=== PATIENT | female | born 1940 | race Caucasian/White ===

== ENCOUNTER → 2018-10-22 15:11 | Outpatient (CLI) | payer MEDICARE, OTHER, SELFPAY ==
[2018-10-22 17:41] LABS: Absolute Lymphocyte Count 1.89 X10^3/ul (0.83-4.51); Absolute Neutrophil Count 4.9 X10^3/uL (2.0-7.7); Basophil# 0.04 X10^3/uL; Basophil% 0.5 % (0-1); Eosinophil# 0.22 X10^3/uL; Eosinophils% 2.9 % (0-5); Hematocrit 40.4 % (37-47); Hemoglobin 13.4 g/dl (12.0-15.0); Lymphocyte # 1.89 X10^3/ul (4.0); Lymphocyte % 24.9 % (19-41); Mean Corp Hgb Conc 33.2 g/gl (32-36); Mean Corpuscular Hgb 30.2 pg (27.0-32.0); Mean Platelet Vol. 10.1 fl (6.2-12.0); Monocyte# 0.52 X10^3/uL; Monocyte% 6.9 % (0-10); Neutrophil # 4.91 X10^3/uL (2.7-7.7); Neutrophil % 64.7 % (47-70); Platelet Count 201 K/mm3 (150-450); RBC Distribution Width CV 12.9 % (11.6-14.6); RBC Distribution Width SD 42.2 fl (35.1-43.9); Red Blood Count 4.44 M/mm3 (4.2-5.4); White Blood Count 7.6 K/mm3 (4.4-11.0)
[2018-10-22 17:57] LABS: ALB/GLOB Ratio 1.1 RATIO (0.9-2.4); AST(SGOT) 26 U/L (15-37); Alanine Aminotransfer ALT/SGPT 32 U/L (13-56); Albumin, Serum 3.6 g/dL (3.2-5.0); Alkaline Phosphatase 75 U/L (45-117); Anion Gap 8 (5-15); BUN 18 mg/dL (7-18); BUN/Creat Ratio 19.3 RATIO (10-20); Calcium,Total 8.6 mg/dL (8.5-10.1); Chloride 104 mmol/L (98-107); Creatinine, Serum 0.93 mg/dL (0.55-1.02); EST Glomerular Filtration Rate 62 mL/min (>60); Est Glom Filt Rate - Afr Amer 75 mL/min (>60); Globulin 3.2 g/dL (2.2-4.2); Glucose 96 mg/dL (74-106); Potassium 3.9 mmol/L (3.5-5.1); Protein, Total 6.8 g/dL (6.4-8.2); Sodium Level 142 mmol/L (136-145)
[2018-10-22 18:04] LABS: POSITIVE COUNT NO; POSITIVE DIFFERENTIAL NO; POSITIVE MORPHOLOGY NO
== END ==
PROVIDERS: Visit Provider Family Medicine
DX: Z01.818 Encounter for other preprocedural examination (principal)
CPT/HCPCS: 36415; 80053; 85025

== ENCOUNTER 2018-11-20 13:06 | Day surgery (SDC) | payer MEDICARE, OTHER, SELFPAY ==
[2018-11-20] VITALS (7 sets, daily range): BP systolic 89–137; BP diastolic 51–69; PULSE 55–65; RESP 16–18; TEMP 36.1–36.8; O2SAT 92–98; BMI 26.5
[2018-11-20] MEDS: Bupivacaine Mpf 0.5% 30 ML VIAL (13:45)
[2018-11-20] MEDS: Cefazolin 2 GM in 0.9% Normal Saline 100 ML IV (14:41)
--- NOTE | 2018-11-20 14:45 | RAD_ITS ---
STUDY: X-RAY RIGHT FOOT, SECOND TOE REASON FOR EXAM: Female, 77 years old. Hammertoe correction TECHNIQUE: 4 view(s) of the toe were obtained. COMPARISON: None. FINDINGS: 4 intraoperative fluoroscopic views were obtained of the second toe for hammertoe correction procedure. There is no evidence of complication. RAD/Toe(s) Min 2 Views IMPRESSION: As above. Electronically Signed: David Ann, at 16:52 EDT Tel , Service support ,
--- NOTE | 2018-11-20 16:19 | PCM.DC.POD ---
Discharge Diet: No Restrictions Discharge Activity: May not drive while taking narcotic pain medications. Weight Bearing Status: Partial weight bearing - heel touch with surgical shoe. do not put pressure on ball of foot or midfoot. use walker, cane or crutch for assistance Keep extremity elevated above heart level: Right Leg Call your doctor if your incision/area has: Continuous Slow Oozing, Sudden Increased Bleeding, Increased Pain/ Swelling, Increased Redness, Foul Smelling Discharge, Swelling at the incision site Call your doctor if you observe: Fever of 101 or Higher, Calf discomfort, Uncontrolled pain Cleanse incision/area with: Keep Dressing Clean & Dry Allergies/Adverse Reactions: Allergies No Known Allergies Allergy (Verified 11/20/18 13:27) Medications to take at Discharge Atorvastatin Calcium [Lipitor] 20 mg PO QHS 11/07/18 CycloSPORINE Ophthalmic [Restasis Ophthalmic] 1 drop EACH EYE BID 11/07/18 Hydrochlorothiazide [Hctz] 25 mg PO DAILY 11/07/18 Losartan Potassium [Cozaar] 50 mg PO DAILY 11/07/18 Metoprolol Succinate 25 mg PO DAILY 11/07/18 Triamcinolone Acetonide [Nasacort] 1 spray NS DAILY 11/07/18 Primary Care Physician: Mariaelena Arceo MD [Primary Care Provider] - Test Results: Test results from this visit will be discussed in further detail at your follow-up appointment, if applicable. Please Follow Up With: Stacey Hudson DPM When: [facility] week at [facility]. Call [phone] sooner if questions. Proposed Discharge Date: 11/20/18
--- NOTE | 2018-11-20 16:23 | RAD_ITS ---
STUDY: X-RAY - RIGHT FOOT CLINICAL: Female, 77 years old. Postoperative TECHNIQUE: 3 view(s) of the foot. COMPARISON: Fluoroscopic evaluation from November 20, 2018 FINDINGS: Post surgical changes from second digit hammertoe deformity are present. There is no evidence of fracture or dislocation. Plantar calcaneal spurring is present. There are no radiodense foreign bodies. RAD/Foot min 3 Views IMPRESSION: No fracture or dislocation. Postsurgical changes from second digit hammertoe deformity. Plantar calcaneal spurring. Electronically Signed: David Ann, at 19:20 EDT Tel , Service support ,
--- NOTE | 2018-11-20 16:27 | OP.PCM_ITS ---
Problem List (1) Hammer toe of right foot Status: Chronic (2) Right foot pain Status: Chronic Report of Operation Date of Procedure: 11/20/18 Pre-Operative Diagnosis: hammer digit syndrome right second Post-Operative Diagnosis: hammer digit syndrome right second Surgery/Procedure Performed:: right second toe hammer toe correction with arthrodesis of proximal interphalangeal joint with internal fixation and second metatarsal phalangeal joint capsulotomy Description of Surgical Findings:: Hemostasis: Well-padded pneumatic right ankle tourniquet, 40 minutes materials: 3-0 vicryl, 5-0 nylon, one 2.5 microFT compression screw (20 mm, arthrex) Complications: None The patient tolerated the procedure and anesthesia well. She was transported to the PACU vital signs stable vascular status intact to the right lower extremity. Her postoperative x-rays were reviewed with arthrodesis site well aligned with FT compression screw and desired trajectory and positioning. The second toe is clinically and radiographically rectus. She will be discharged home upon continued stability in her postoperative orders were entered electronically. 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 Sales Trainee: Ciera Langley, PGY3 Type of Anesthesia:: Local MAC - Preoperative: 7 cc of one-to-one mixture of 1% lidocaine plain and 0.5% Marcaine plain administered in typical second ray block fashion of the right foot Intraoperative: 7 cc same Specimen's removed: none Estimated Blood Loss (mL): <100 mL Description of Procedure: Indications: This 77-year-old female with significant past medical history of hypertension and previous aortic valve disease, has continued pain at the prominent aspect of her hammertoe deformity of the right second toe. Her condition has been developing for many years and is affecting her daily activities due to discomfort. She has pain with ambulation, shoe gear use, and direct pressure. She has failed conservative care including insoles, shoe gear change, activity modification, rest, and padding. She had surgical correction performed on her left lower extremity with resolution of her painful condition. Her neurovascular status is intact with palpable pulses and epicritic sensation intact. Clinically she has a dorsal contraction of the right second toe that is rigid and nonreducible at the proximal interphalangeal joint level and not the distal interphalangeal joint level. There appears to be some metatarsophalangeal joint contraction with the kelikian push-up test. Radiographically, a contracture of the second toe is noted and there are no other acute injuries. The metatarsal parabola appears to be well aligned and the second metatarsal is not elongated. The preoperative indications, planned procedure, possible benefits, risks, complications, anticipated healing time is were discussed in detail with the patient. She understands and elects to proceed with surgery at this time. No guarantees were made. She understands risks and complications include but are not limited to the following: Infection, pain, scarring, pain syndrome, delayed or nonhealing surgical wound or arthrodesis site, failed surgery including hardware, need for additional surgery, blood clots, allergic reaction, floating or deviated toe, transfer lesion, recurrence, over or under correction, loss of limb, function, or life. The informed surgical consent and limb were signed. I answered all of her questions. Her preoperative history and physical clearance were reviewed including her diagnostic data which there were no gross abnormalities. Procedure in detail: The patient was transferred to the operating room via cart and placed on the operating table in supine position. Final verification of patient, surgery, limb designation was performed via the timeout procedure. MAC anesthesia was initiated by the anesthesia team. Local anesthesia was administered by the podiatry team. A well-padded pneumatic right ankle tourniquet was placed. Her hip was bumped to allow good exposure. The right lower extremity was prepped and draped in the usual aseptic manner. Examination of the right lower extremity was performed and the tourniquet was inflated. Surgery began followi ng: Attention was first directed to the dorsal aspect of the right second toe in which a longitudinal ellipse incision was made over the prominent proximal interphalangeal joint aspect including the corn. Next careful blunt dissection was performed down to the layer of the proximal interphalangeal joint taking care to identify, protect, and retract all neurovascular structures at this point and throughout the remainder of surgery. A transverse linear incision was made to enter the proximal interphalangeal joint and the collateral ligaments were reflected off the proximal phalanx head to gain good exposure. The joint surface of the middle phalanx was also cleared of cartilage with a ronguer to healthy bleeding subchondral bone. A sagittal saw was used to resect the head of the proximal phalanx. This toe was shortened and the dorsal contraction was relieved. Next a retrograde K wire was applied to approximate the bone ends well in a rectus position. A 20 mm FT compression screw was applied according to standard protocol with good compression in which proper positioning and placement was confirmed with intraoperative fluoroscopy. Next, a Kelikian push- up test was performed and dorsal contraction of this second ray was significantly improved however some contracture persisted at the metatarsal phalangeal joint level. Therefore attention was next directed to the second met atarsal phalangeal joint in which a 1.5 cm linear incision was made through the skin. Blunt dissection was performed down to the second metatarsophalangeal joint capsule. A 15 blade was used to enter the second metatarsophalangeal joint and this was freed. Attention was also given to release the extensor tendon taylor and sheath to free it from the capsule joint to also allow further reduced tension. Additional correction was deemed necessary from a plantar aspect and a McGlamry elevator was used to release the plantar plate contracted structures of the second metatarsophalangeal joint. The extensor tendon was also lengthened (z plasty) and the updated tendon position was secured with nylon. Copious irrigation was performed with saline. The tendon over the proximal interphalangeal joint was gently reapproximated with Vicryl utilizing box stitch technique. When the foot was loaded, improved reduced position of the toe is noted clinically radiographically. The second toe was noted to be in a relaxed rectus position. No acute injuries are noted on x-ray. The tourniquet was deflated and brisk capillary refill time was noted to all digits. Minimal electrocauterization was performed. Deep closure was performed with 3-0 Vicryl. The skin was reapproximated with 5-0 nylon utilizing horizontal mattress simple suture technique. A postoperative dressing consisting of Betadine soaked Adaptic, Adaptic gauze, gauze, Kerlix, and Heriberto wrap was applied with a second toe in a rectus position. After procedure: The patient was transferred to the PACU with vital signs stable and vascular status intact to the right lower extremity. She will be transferred home upon continued stability. She is advised to only heel touch weight-bear as tolerated with surgical shoe in place. She is advised to ice and elevate for pain and inflammation management. She is advised to keep her dressing clean, dry, and intact until follow-up next week at the [facility]. She has already been provided with a pain medication prescription and was advised on safe and proper use. Postoperative x-rays were reviewed as noted. Postoperative orders were entered electronically. Stacey Hudson DPM, [facility] - Complications none - Admit VTE Documentation VTE Present on Admission: No VTE Mechan Device Prophylaxis: SCD's VTE Pharm Prophylaxis ordered?: No Reason prophylaxis not ordered:: Treatment Not Indicated
== END 2018-11-20 17:41 | disposition home or self-care (01) ==
LOC: SDC 13:11 → AC 13:12
PROVIDERS: Family Provider Family Medicine; PCP Family Medicine; Referring Provider Podiatrist; Visit Provider Podiatrist
PROC: (CPT 28270; principal; 2018-11-20 14:30)
DX: M20.41 Other hammer toe(s) (acquired), right foot (principal); E78.00 Pure hypercholesterolemia, unspecified; I10 Essential (primary) hypertension; Z79.899 Other long term (current) drug therapy
CPT/HCPCS: 28270; 28285; 73630; 73660; 76000; C1713; J7120; J2405